=== PATIENT | male | born 1975 | race Caucasian/White ===

== ENCOUNTER 2016-10-10 18:21 | Emergency (ER) | payer OTHER ==
[~2016-10-10] VITALS: Ht 167.6 cm; Wt 86.2 kg
[2016-10-10 18:23] VITALS: BP 133/84
--- NOTE | 2016-10-10 18:30 | NUR ---
PT PRESENTS TO ER FOR EVALUATION OF LACERATION TO LEFT THIGH SUSTAINED WHILE UTILIZING RECRUITMENT AND OUTREACH ASSISTANT TOOL. HX HYPERLIPIDEMIA.. PT STATES HE DON'T FEEL ANY PAIN RT NOW;DENIES ANY TINGLING /NUMBNESS SENSATION ON LT THIGH; DENIES N/V/D; SKIN IS PINK/WARM/DRY; AAOX4 WITH EVEN AND STEADY GAIT; LUNGS CLEAR BL; HR EVEN AND REGULAR; PT DENIES ANY FEVER, CP, SOB, OR COUGH AT THIS TIME; PATIENT STATES PAIN OF 0/10 AT THIS TIME;PATIENT POSITIONED FOR COMFORT; HOB ELEVATED; BEDRAILS UP X2; BED DOWN. ER MD WILL BE NOTIFIED.
--- NOTE | 2016-10-10 18:44 | NUR ---
Dr. Lyons evaluating patient at bedside.
--- NOTE | 2016-10-10 19:08 | NUR ---
Dr. Lyons at bedside for laceration repair.
[2016-10-10 19:40] VITALS: BP 128/80
--- NOTE | 2016-10-10 19:40 | NUR ---
Patient discharged with v/s stable. Written and verbal after care instructions given and explained. Patient verbalized understanding. Ambulatory with steady gait. All questions addressed prior to discharge. Advised to follow up with PMD.
== END 2016-10-10 19:40 | disposition home or self-care (01) ==
LOC: MED 18:21
DX: S71.112A Laceration without foreign body, left thigh, initial encounter (principal); E78.5 Hyperlipidemia, unspecified; W27.8XXA Contact with other nonpowered hand tool, initial encounter; Y93.89 Activity, other specified; Y92.89 Other specified places as the place of occurrence of the external cause; Y99.8 Other external cause status
CPT/HCPCS: 90471; 90715; 96372; 99283